=== PATIENT | male | born 1995 | race Caucasian/White ===

== ENCOUNTER 2020-11-27 20:48 | Emergency (ER) | payer MEDICAID ==
[~2020-11-27] VITALS: Ht 172.7 cm; Wt 74.8 kg
--- NOTE | 2020-11-27 21:33 | NUR ---
BIBSELF C/O R KNEE PAIN S/P FALL X3 DAYS AGO -HEAD INJURY, +SKIN INTACT TO ER ED 2
--- NOTE | 2020-11-27 21:44 | NUR ---
TECH AT BEDSIDE FOR XRAY
[2020-11-27] MEDS ORDERED: IBUP-1955 PO (22:06)
[2020-11-27] MEDS ORDERED: TRAM50TA2 PO (22:06)
[2020-11-27 22:10] VITALS: BP 127/85
--- NOTE | 2020-11-27 22:10 | NUR ---
Patient discharged to home in stable condition. Written and verbal after care instructions given. Patient verbalizes understanding of instruction.
== END 2020-11-27 22:10 | disposition home or self-care (01) ==
LOC: ER 20:48
DX: M25.562 Pain in left knee (principal); Z79.899 Other long term (current) drug therapy
CPT/HCPCS: 73564-TC